=== PATIENT | male | born 1945 | race Two or more races ===

== ENCOUNTER 2022-11-22 00:34 | Emergency (ER) | payer MEDICARE, OTHER ==
[~2022-11-22] VITALS: Ht 167.6 cm; Wt 90.7 kg
[2022-11-22 00:39] VITALS: BP 132/58; TEMP 99.1
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
--- NOTE | 2022-11-22 01:35 | NUR ---
GLUCOSE CHECK 103
--- NOTE | 2022-11-22 01:49 | NUR ---
Patient discharged to home in stable condition. Written and verbal after care instructions given. Patient verbalizes understanding of instruction.
== END 2022-11-22 01:49 | disposition home or self-care (01) ==
LOC: ER 00:37
DX: R53.1 Weakness (principal); F15.90 Other stimulant use, unspecified, uncomplicated; Z60.2 Problems related to living alone
CPT/HCPCS: 82962-TC